=== PATIENT | female | born 1985 | race Caucasian/White ===

== ENCOUNTER 2017-06-03 11:54 | Day surgery (SDC) | payer BC ==
[2017-05-30 12:33] LABS: HEMATOCRIT 41.8 % (36.0-48.0); HEMOGLOBIN 13.7 g/dL (12.0-16.0)
[2017-05-30 12:41] LABS: INTERNATIONAL NORMAL RATI 1.1 UNITS (-); PARTIAL THROMBO TIME 34.5 SEC (22.5-37.2); PROTIME (NOT ORD) 13.9 SEC (12.0-14.5)
[~2017-06-03] VITALS: Ht 172.7 cm; Wt 82.7 kg
[~2017-06-03 11:54] MED LIST: ACETAMINOPHEN PO; BUTALBITAL PO; CAFFEINE PO; DEPO INJECTION IM; PROAIR HFA INH; STIOLTO RESPIMAT4 GM INH; SUBOXONE 8 MG-1 EAC1 SL
== END 2017-06-03 18:26 | disposition home or self-care (01) ==
LOC: SDC 11:54
PROVIDERS: Otolaryngology
PROC: 09JY4ZZ Inspection of Sinus, Percutaneous Endoscopic Approach (ICD-10-PCS; 2017-06-03)
PROC: 099R4ZZ Drainage of Left Maxillary Sinus, Percutaneous Endoscopic Approach (ICD-10-PCS; 2017-06-03)
PROC: 099Q4ZZ Drainage of Right Maxillary Sinus, Percutaneous Endoscopic Approach (ICD-10-PCS; 2017-06-03)
PROC: 09BV4ZZ Excision of Left Ethmoid Sinus, Percutaneous Endoscopic Approach (ICD-10-PCS; principal; 2017-06-03 13:15)
PROC: 09BU0ZZ Excision of Right Ethmoid Sinus, Open Approach (ICD-10-PCS; 2017-06-03 13:15)
DX: J32.0 Chronic maxillary sinusitis (principal); J32.1 Chronic frontal sinusitis; J32.2 Chronic ethmoidal sinusitis; F41.9 Anxiety disorder, unspecified; J45.909 Unspecified asthma, uncomplicated; Z88.2 Allergy status to sulfonamides; Z88.5 Allergy status to narcotic agent; Z90.49 Acquired absence of other specified parts of digestive tract; Z79.899 Other long term (current) drug therapy; Z98.890 Other specified postprocedural states
CPT/HCPCS: 84703; 85014; 85018; 85610; 85730; 94640; A9270-GY; C1725; J0690; J1170; J1630; J2250; J2405; J2550; J3010